=== PATIENT | female | born 1980 ===

== ENCOUNTER 2020-09-09 08:23 | Outpatient (CLI) | payer OTHER | END 2020-09-09 08:41 | disposition home or self-care (01) | LOC: RAD 08:23 | PROVIDERS: ATTEND Otolaryngology Otolaryngology/Facial Plastic Surgery | DX: E04.1 Nontoxic single thyroid nodule (principal); R13.10 Dysphagia, unspecified ==

== ENCOUNTER 2021-01-12 09:12 | Outpatient (CLI) | payer OTHER | END 2021-01-12 14:27 | disposition home or self-care (01) | LOC: RX STUDY 09:12 | PROVIDERS: ATTEND Internal Medicine Gastroenterology | DX: J39.8 Other specified diseases of upper respiratory tract (principal); K22.89 Other specified disease of esophagus; R13.11 Dysphagia, oral phase ==